=== PATIENT | female | born 1945 | race African-American/Black ===

== ENCOUNTER 2016-11-13 13:22 | Outpatient (CLI) | payer MEDICARE, MEDICAID ==
[2016-11-13 14:05] LABS: #Basophils 0.1 thou/uL (0.0-0.2); #Eosinphils 0.2 thou/uL (0.0-0.7); #Lymphocytes 2.5 thou/uL (1.20-3.40); #Monocytes 0.7 thou/uL (0.11-0.59); #Neutrophils 4.7 thou/uL (1.40-6.50); %Basophils 1.5 % (0.0-1.0); %Lymphocytes 30.2 % (21.0-51.0); %Monocytes 8.9 % (0.0-10.0); Hematocrit 38.9 % (36.0-47.0); Mean Platelet Volume 7.4 fL (7.4-10.4); Red Blood Cell (RBC) Count 4.15 mill/uL (4.20-5.40); White Blood Cell (WBC) Count 8.3 thou/uL (4.8-10.8)
[2016-11-13 14:17] LABS: ALT (SGPT) 33 U/L (0-55); AST (SGOT) 39 U/L (5-34); Alkaline Phosphatase 121 U/L (40-150); Anion Gap 17 mmol/L (10-20); BUN (Urea Nitrogen) 10 mg/dL (9.8-20.1); Bilirubin, Total 0.4 mg/dL (0.2-1.2); Calc. Creatinine Clearance 0 mL/min (70-130); Calcium 9.4 mg/dL (7.8-10.44); Carbon Dioxide 27 mmol/L (23-31); Chloride 101 mmol/L (98-107); Estimated GFR-MDRD 51; Globulin 3.8 g/dL (2.4-3.5); Protein, Total 7.9 g/dL (5.8-8.1)
[2016-11-13 14:27] LABS: Hemoglobin A1c 6.4 % (4.0-6.0)
== END 2016-11-13 13:23 | disposition home or self-care (01) ==
LOC: NAVSJIPCSP 13:22 → NAV LAB 13:23
PROVIDERS: ATTEND Internal Medicine
DX: I83.019 Varicose veins of right lower extremity with ulcer of unspecified site (principal)
CPT/HCPCS: 80053; 83036; 85025

== ENCOUNTER 2016-11-30 07:24 | Emergency (ER) | payer MEDICARE, MEDICAID ==
[2016-11-30] MEDS ORDERED: HYDROcodone/Acetaminophen 5/325 mg Tablet ONE (08:09)
--- NOTE | 2016-11-30 09:06 | RAD ---
TWO VIEWS LEFT HIP: INDICATION: Pain without injury. FINDINGS: There is moderate osteoarthritis of the left hip without fracture or dislocation. Vascular calcific ation is present. IMPRESSION: Osteoarthritis without acute fracture. POS: [facility]
== END 2016-11-30 09:18 | disposition home or self-care (01) ==
LOC: NAV ERS 07:24
DX: M16.12 Unilateral primary osteoarthritis, left hip (principal); I10 Essential (primary) hypertension; E11.9 Type 2 diabetes mellitus without complications; Z79.84 Long term (current) use of oral hypoglycemic drugs; Z79.899 Other long term (current) drug therapy

== ENCOUNTER 2017-04-19 09:49 | Outpatient (CLI) | payer MEDICARE, MEDICAID ==
[2017-04-19 11:28] LABS: Blood, Urine Negative (Negative); Clarity Slightly Cloudy (Clear); Glucose, Urine (Dipstick) Negative (Negative); Leukocyte Negative (Negative); Nitrite Negative (Negative); Protein, Urine (Dipstick) 100 mg/dL (Neg-Trace)
--- NOTE | 2017-04-19 11:34 | ULT ---
RIGHT LOWER EXTREMITY VENOUS DOPPLER ULTRASOUND: DATE: 04/19/17. COMPARISON: None. HISTORY: Right lower extremity swelling for 2 weeks. Right lower extremity edema. TECHNIQUE: Multiplanar, cohn scale, sonographic imaging of the venous structures of the right lower extremity w ere obtained with color flow and spectral analysis. FINDINGS: Right common femoral vein, greater saphenous vein, profunda femoral vein, femoral vein, popliteal ve in, and posterior tibial vein are patent. No evidence for a deep venous thrombosis of the right low er extremity seen. The deep venous structures of the right lower extremity demonstrate normal blood flow, augmentation, and compression. IMPRESSION: No sonographic evidence for deep venous thrombosis of the right lower extremity. POS: [facility]
[2017-04-19 11:44] LABS: ALT (SGPT) 44 U/L (8-55); AST (SGOT) 99 U/L (5-34); Alkaline Phosphatase 115 U/L (40-150); Anion Gap 18 mmol/L (10-20); BUN (Urea Nitrogen) 11 mg/dL (9.8-20.1); Calc. Creatinine Clearance 0 mL/min (70-130); Calcium 9.6 mg/dL (7.8-10.44); Carbon Dioxide 28 mmol/L (23-31); Chloride 100 mmol/L (98-107); Estimated GFR-MDRD 43; Globulin 4.1 g/dL (2.4-3.5); Glucose 134 mg/dL (83-110); Potassium 4.1 mmol/L (3.5-5.1); Protein, Total 8.1 g/dL (6.0-8.3); Sodium 142 mmol/L (136-145)
--- NOTE | 2017-04-19 11:45 | RAD ---
PA AND LATERAL VIEWS CHEST: HISTORY: Diabetes, leg pain. FINDINGS: The heart size is normal. The lungs are expanded without focal areas of consolidation, pneumothorax , or pleural effusions. There are degenerative changes in the spine. An old healed fracture of the left proximal humerus is seen. IMPRESSION: No acute process. POS: [facility]
[2017-04-19 11:50] LABS: Hemoglobin A1c 5.6 % (4.0-6.0)
[2017-04-19 11:54] LABS: Bilirubin Negative (Negative); Icto Negative (Negative)
[2017-04-19 12:04] LABS: Bacteria/HPF Rare-Few HPF (None Seen); RBC/HPF 0-3 HPF (0-3); Squamous Epithelial 0-3 HPF (0-3); WBC/HPF 0-3 HPF (0-3); Yeast-All Forms 1+ HPF (None Seen)
[2017-04-19 12:36] LABS: #Basophils 0.2 thou/uL (0.0-0.2); #Eosinphils 0.2 thou/uL (0.0-0.7); #Lymphocytes 2.4 thou/uL (1.20-3.40); #Monocytes 0.6 thou/uL (0.11-0.59); #Neutrophils 6.4 thou/uL (1.40-6.50); %Basophils 1.8 % (0.0-1.0); %Eosinophils 2.2 % (0.0-10.0); %Lymphocytes 24.7 % (21.0-51.0); %Monocytes 6.2 % (0.0-10.0); %Neutrophils 65.2 % (42.0-75.0); Hemoglobin 12.8 g/dL (12.0-16.0); Mean Corpuscular Hemoglobin 30.1 pg (27.0-31.0); Mean Corpuscular Volume 91.2 fl (81.0-99.0); Mean Platelet Volume 7.9 fL (7.4-10.4); Platelet Count 276 thou/uL (130-400); RBC Distribution Width 14.1 % (11.5-14.5); Red Blood Cell (RBC) Count 4.25 mill/uL (4.20-5.40); White Blood Cell (WBC) Count 9.8 thou/uL (4.8-10.8)
[2017-04-19 17:38] LABS: Creatinine, Urine Greater than 430.00 mg/dL (47-110)
== END 2017-04-19 09:50 | disposition home or self-care (01) ==
LOC: NAV LAB 09:49
PROVIDERS: ATTEND Internal Medicine
DX: E11.9 Type 2 diabetes mellitus without complications (principal); M79.89 Other specified soft tissue disorders
CPT/HCPCS: 36415; 71020; 80053; 81003; 81015; 82043; 83036; 84443; 85025

== ENCOUNTER 2017-09-11 14:22 | Outpatient (CLI) | payer MEDICARE, MEDICAID ==
--- NOTE | 2017-09-11 16:48 | RAD ---
TWO VIEW CHEST: Date: 09-11-17 Comparison: 04-19-17 History: Weight loss. FINDINGS: There is no lobar consolidation, effusion, or pneumothorax. Cardiac silhouette is normal in size. IMPRESSION: No focal consolidation. POS: [facility]
--- NOTE | 2017-09-11 17:58 | CT ---
CT ABDOMEN AND PELVIS NONCONTRAST: History: Weight loss. Loss of appetite. Comparison: 10-01-14 FINDINGS: IV was unable to be achieved for contrast administration. The lung bases are clear. Each renal collec ting system and ureter and the urinary bladder are decompressed, without stone evidence. There are prominent degenerative changes of the lumbar spine. No evidence of bowel obstruction. Diver ticula arise from the colon with adjacent inflammation. There is calcification in the arterial struct ures. Stomach is decompressed. IMPRESSION: 1. No evidence of bowel obstruction or other acute abnormalities. IV contrast was not given due to in ability to gain venous access. 2. Atherosclerosis. 3. Diverticulosis. No evidence of diverticulitis. POS: [facility]
== END 2017-09-11 14:23 | disposition home or self-care (01) ==
LOC: NAV CT 14:22
PROVIDERS: ATTEND Internal Medicine
DX: R63.4 Abnormal weight loss (principal); I70.90 Unspecified atherosclerosis; K57.90 Diverticulosis of intestine, part unspecified, without perforation or abscess without bleeding
CPT/HCPCS: 71046; 74177

== ENCOUNTER 2019-06-01 11:17 | Outpatient (CLI) | payer MEDICARE, MEDICAID ==
--- NOTE | 2019-06-01 13:59 | CT ---
CT ABDOMEN AND PELVIS WITHOUT IV CONTRAST: Date: 06/01/19 INDICATION: 74-year-old female with weight loss. COMPARISON: Prior exam dated 09/11/17. FINDINGS: ABDOMEN: Lung bases are clear. There is mild fatty infiltration of the liver. There is layered small stones or gallbladder sludge within the gallbladder. The unopacified pancreas, adrenal glands, spleen, and kidneys are unremarkable appearing. There are mild vascular calcifications involving the abdominopelvic vasculature. No enlarged lymph nodes or free fluid is evident. There is a normal appendix in the right lower quadrant. There is scattered diverticula involving the colon without evidence of active diverticulitis. The reproductive structures are not visualized and presumed to be surgically absent. The bladder is decompressed. Rectum and perirectal soft tissues are unremarkable appearing. There is Grade I anterolisthesis of L4 on L5 that is stable to a MRI examination dated 07/02/02. There is moderate multilevel spondylosis of the lumbar spine. There is diffuse osteopenia. No suspici ous osteolytic or osteoblastic lesions identified. Small hemangioma seen within the right aspect of L 4. IMPRESSION: 1. No CT explanation for the patient's weight loss. 2. Gallbladder sludge versus cholelithiasis. 3. Mild fatty liver. 4. Colonic diverticulosis. POS: [facility]
== END 2019-06-01 11:18 | disposition home or self-care (01) ==
LOC: NAV CT 11:17
PROVIDERS: ATTEND Internal Medicine
DX: R63.0 Anorexia (principal); K76.0 Fatty (change of) liver, not elsewhere classified; K57.30 Diverticulosis of large intestine without perforation or abscess without bleeding
CPT/HCPCS: 74176

== ENCOUNTER 2019-06-16 14:53 | Inpatient (IN) | payer MEDICARE, MEDICAID ==
[2019-06-16] MEDS ORDERED: Ondansetron ODT 4 MG TAB PO PRN (20:01)
[2019-06-16] MEDS ORDERED: HumaLOG 300 UNITS/3 ML VIAL SC PRN (20:05)
[2019-06-16] MEDS ORDERED: Dextrose 5% in Water 1,000 ML IV PRN (20:05)
[2019-06-16] MEDS ORDERED: Dextrose 50% Abboject 50 ML SYRINGE SLOW IVP PRN (20:05)
[2019-06-16] MEDS: Sodium Chloride 0.9% 1,000 ML IV SCH (20:29)
[2019-06-16 20:55] LABS: #Basophils 0.1 thou/uL (0.0-0.2); #Eosinphils 0.2 thou/uL (0.0-0.7); #Lymphocytes 1.9 thou/uL (1.20-3.40); #Monocytes 0.8 thou/uL (0.11-0.59); #Neutrophils 3.3 thou/uL (1.40-6.50); %Basophils 1.6 % (0.0-1.0); %Eosinophils 3.3 % (0.0-10.0); %Lymphocytes 29.7 % (21.0-51.0); %Monocytes 12.9 % (0.0-10.0); Mean Corpuscular HGB CONC 34.2 g/dL (32.0-36.0); Mean Corpuscular Hemoglobin 30.2 pg (27.0-31.0); Mean Corpuscular Volume 88.4 fL (78.0-98.0); Mean Platelet Volume 8.4 fL (7.4-10.4); Platelet Count 162 thou/uL (130-400); RBC Distribution Width 12.1 % (11.5-14.5); Red Blood Cell (RBC) Count 2.66 mill/uL (4.20-5.40); White Blood Cell (WBC) Count 6.3 thou/uL (4.8-10.8)
[2019-06-16 20:56] LABS: ALT (SGPT) 27 U/L (8-55); AST (SGOT) 51 U/L (5-34); Albumin 2.9 g/dL (3.4-4.8); Alkaline Phosphatase 73 U/L (40-110); Anion Gap 13 mmol/L (10-20); BUN (Urea Nitrogen) 29 mg/dL (9.8-20.1); Bilirubin, Total 0.6 mg/dL (0.2-1.2); Calc. Creatinine Clearance 29 mL/min (70-130); Calcium 8.5 mg/dL (7.8-10.44); Carbon Dioxide 25 mmol/L (23-31); Chloride 95 mmol/L (98-107); Estimated GFR-MDRD 26; Globulin 3.1 g/dL (2.4-3.5); Glucose 93 mg/dL (83-110); Potassium 4.3 mmol/L (3.5-5.1); Sodium 129 mmol/L (136-145)
[2019-06-16 21:03] LABS: %Neutrophils 52.4 % (42.0-75.0)
[2019-06-17 04:08] LABS: Bilirubin Negative (Negative); Blood, Urine Trace (Negative); Clarity Clear (Clear); Glucose, Urine (Dipstick) Negative (Negative); Leukocyte Negative (Negative); Nitrite Negative (Negative); Protein, Urine (Dipstick) Negative (Neg-Trace); Urobilinogen 0.2 mg/dL (Less than 2)
[2019-06-17 04:12] LABS: Bacteria/HPF None Seen HPF (None Seen); RBC/HPF 0-3 HPF (0-3); WBC/HPF None Seen HPF (0-3)
[2019-06-17] MEDS: Sodium Chloride 0.9% 1,000 ML IV SCH ×2 (04:20→13:13)
[2019-06-17 06:18] LABS: Anion Gap 14 mmol/L (10-20); BUN (Urea Nitrogen) 24 mg/dL (9.8-20.1); Calc. Creatinine Clearance 39 mL/min (70-130); Calcium 8.5 mg/dL (7.8-10.44); Carbon Dioxide 25 mmol/L (23-31); Chloride 101 mmol/L (98-107); Estimated GFR-MDRD 35; Glucose 81 mg/dL (83-110); Potassium 4.4 mmol/L (3.5-5.1); Sodium 136 mmol/L (136-145)
[2019-06-17] MEDS: Allopurinol 100 MG TAB PO SCH (09:25)
[2019-06-17] MEDS: Lisinopril 20 MG TAB PO SCH (09:29)
[2019-06-17] MEDS: Amlodipine 5 MG TAB PO SCH (09:29)
[2019-06-18] MEDS: Sodium Chloride 0.9% 1,000 ML IV SCH ×4 (00:52→16:33)
[2019-06-18 06:31] LABS: Anion Gap 15 mmol/L (10-20); BUN (Urea Nitrogen) 11 mg/dL (9.8-20.1); Calc. Creatinine Clearance 65 mL/min (70-130); Calcium 8.7 mg/dL (7.8-10.44); Carbon Dioxide 23 mmol/L (23-31); Chloride 107 mmol/L (98-107); Estimated GFR-MDRD 65; Glucose 79 mg/dL (83-110); Potassium 4.3 mmol/L (3.5-5.1); Sodium 141 mmol/L (136-145)
[2019-06-18] MEDS: Allopurinol 100 MG TAB PO SCH (08:51)
[2019-06-18] MEDS: Amlodipine 5 MG TAB PO SCH (08:51)
[2019-06-18] MEDS: Lisinopril 20 MG TAB PO SCH (09:18)
[2019-06-18] MEDS ORDERED: GoLYTELY 4,000 ml Bottle PO SCH (16:00)
[2019-06-19 07:03] VITALS: BMI 30.9
[2019-06-19] MEDS: Sodium Chloride 0.9% 1,000 ML IV SCH (07:03)
[2019-06-19] MEDS: Amlodipine 5 MG TAB PO SCH (07:15)
[2019-06-19 07:59] VITALS: TEMP 97.8
[2019-06-19] MEDS: Allopurinol 100 MG TAB PO SCH (10:55)
[2019-06-19] MEDS: Lisinopril 20 MG TAB PO SCH (10:55)
[2019-06-19 16:12] VITALS: BP 159/83
--- NOTE | 2019-06-23 06:09 | PRG ---
DATE OF SERVICE: 06/17/2019 SUBJECTIVE: The patient still feels very weak, but is feeling better after IV fluids. Denying any shortness of breath, nausea, or vomiting, but is still having very poor appetite, not eating well, poor oral intake. OBJECTIVE: VITAL SIGNS: Temperature is 98.3 pulse 101, respirations 18, O2 sats 97% on room air, blood pressure is 88/50. LUNGS: Clear. CARDIAC: Shows regular rhythm. ABDOMEN: Soft and nontender. LABORATORY DATA: Initial hemoglobin was 8.0, hematocrit 23, and white count 6,300. ASSESSMENT: A 74-year-old black female with a history of anorexia, weight loss, severe weakness, admitted to the hospital for IV fluids, for evaluation of above symptoms. She has had nondiagnostic CT scan, but has not had colonoscopy in such a weakened state, that she is unable to do her prep at home and therefore admitted to the hospital for IV fluids and is improving on this and we will start prep tomorrow. Job ID: [id number]
--- NOTE | 2019-06-23 06:13 | DIS ---
DATE OF ADMISSION: 06/16/2019 DATE OF DISCHARGE: 06/19/2019 FINAL DIAGNOSES: 1. Large gastric ulcer, biopsies pending. Few benign-appearing colon polyps and diverticular disease. 2. Type 2 diabetes. 3. Anorexia and weight loss. 4. Hypertension. 5. Lumbar spinal stenosis. HOSPITAL COURSE: The patient is a 74-year-old black female with history of hypertension, diabetes, presented to the office with a 20-pound weight loss over the last several weeks associated with poor oral intake, anorexia, and difficulty swallowing. She has had a CT scan, which showed gallbladder sludge, mild fatty liver, colonic diverticular disease, but has never had colonoscopy or EGD. She therefore was admitted to the hospital because she was severely weakened to the point she could not maintain her prep, started on IV fluids, appeared to improve with that and then was started on the colonoscopy prep and tolerated fairly well. Did have an EGD, which showed a large gastric ulcer. Biopsies are pending. She was started on omeprazole 20 mg twice daily. Her colonoscopy only showed diverticular disease. She did feel better after the IV fluids and stated that she wished to be discharged home to attempt to eat better at home, on these medications. She will therefore be discharged home to follow up with myself in 1 to 2 weeks. Pending results of gastric ulcer biopsy. Job ID: [id number]
--- NOTE | 2019-06-23 06:23 | PRG ---
DATE OF SERVICE: 06/18/2019 SUBJECTIVE: The patient feels somewhat better, is tolerating the prep with no vomiting, but with some nausea and no abdominal pain. She is not as weak as she was and the IV fluids appeared to be improving her status. OBJECTIVE: Temperature is 97, pulse 89, respirations 18, O2 sats 98% on room air, and blood pressure 128/69. Accu-Cheks have been stable. Prep is ongoing with EGD and colonoscopy tomorrow by Dr. Patel. ASSESSMENT: 1. Resolving dehydration and weakness with IV fluids. 2. Persistent anorexia, poor oral intake, and weight loss of unknown etiology. PLAN: Colonoscopy and EGD tomorrow. Job ID: [id number]
--- NOTE | 2019-06-24 05:56 | PQF ---
SAP Chain Offbearer Crystal Reports Winform ViewerBROADEN PEDRO LUIS De La Cruz CHAY POWERS MD [id number] CLINICAL DOCUMENTATION CLARIFICATION FORM: POST DISCHARGE Addendum to original discharge summary date: ____ Late entry note date: __ DATE: 06/16/19 ATTN: CHAY POWERS MD Please exercise your independent, professional judgment in responding to the clarification form. Clinical indicators are provided on the bottom of this form for your review Please check appropriate box(s): ETIOLOGY OF WEAKNESS [ x ] Weakness due to Large gastric ulcer [ ] Weakness due to colon polyp [ ] Weakness due to diverticular disease [ ] Other diagnosis [ ] Unable to determine In addition, please specify: Present on Admission (POA): [x ] Yes [ ] No [ ] Unable to determine For continuity of documentation, please document condition throughout progress notes and discharge summary. Thank You. CLINICAL INDICATORS - SIGNS / SYMPTOMS / LABS Admitted hospital because of he was severely weakned - Documentd in DS on 06/19 by CHAY POWERS MD Large gastric ulcer - Documentd in DS on 06/19 by CHAY POWERS MD Few benign appearing colon polyps and divertivular disease - Documentd in DS on 06/19 by CHAY POWERS MD She had CT scan which showed gallbladder sludge mild fatty liver, colonic diverticular disease - Documentd in DS on 06/19 by CHAY POWERS MD EGD shows large gastric ulcer - Documentd in DS on 06/19 by CHAY POWERS MD colonoscopy shows diverticular disease - Documentd in DS on 06/19 by CHAY POWERS MD Resolving dehydraqtion and weaknewss with IV fluids - Documented in PNs on by CHAY POWERS MD RISK FACTORS HTN DM TREATMENTS: Started IV fluids appeared to improved - Documentd in DS on 06/19 by CHAY POWERS MD EGD biopsy colonoscopy SAP Chain Offbearer Crystal Reports Winform Viewer (This form is maintained as a part of the permanent medical record) 2014 [employer]. All Rights Reserved Phuc [email or web address] [not provided] MTDD
--- NOTE | 2019-06-24 22:37 | PQF ---
SAP Brooch And Bracelet Maker Crystal Reports Winform ViewerBROADEN PEDRO LUIS De La Cruz CHAY POWERS MD [id number] CLINICAL DOCUMENTATION CLARIFICATION FORM: POST DISCHARGE Addendum to original discharge summary date: ____ Late entry note date: __ Date: 06/25/2019 ATTN: CHAY POWERS MD Please exercise your independent, professional judgment in responding to the clarification form. Clinical indicators are provided on the bottom of this form for your review Please check appropriate box(s): [ x ] Protein Calorie Malnutrition: [ ] Mild [ ] Moderate [ ] Severe [ ] Other Malnutrition (please specify) __ [ ] Underweight without malnutrition [ ] Cachexia [ ] Other diagnosis [ ] Unable to determine In addition, please specify: Present on Admission (POA): [ x ] Yes [ ] No [ ] Unable to determine CLINICAL INDICATORS - SIGNS / SYMPTOMS / LABS Anorexia - Documented in DS on 06/19 by CHAY POWERS MD BMI of _30.9_ Weight loss - Documented in DS on 06/19 by CHAY POWERS MD Large gastric ulcer - Documented in DS on 06/19 by CHAY POWERS MD Present to the office with a 20 pounds weight loss over the last several weeks associated poor oral intake and difficulty to swallowing - Documented in DS on 06/19 by CHAY POWERS MD HGB 8.0 on 06/16 - Documented in Laboratory results Albumin level 2.9 on 06/16 - Documented in Laboratory results Feeling better after IV fluids - Documented in PNs on 06/23 by CHAY POWERS MD RISK FACTORS Diverticulosis - Documented in DS on 06/19 by CHAY POWERS MD Benign appearing colon - Documented in DS on 06/19 by CHAY POWERS MD TREATMENT: started on IV fluids Eat better at home Moderate Malnutrition (in acute illness) Energy Intake: <75% of estimated energy requirement for > 7 days SAP Brooch And Bracelet Maker Crystal Reports Winform ViewerWeight Loss: 1-2%/1 week; 5%/ 1 month; 7.5%/3 months Other: mild body fat loss; mild muscle mass loss; mild fluid accumulation; Severe Malnutrition (in acute illness) Energy Intake: < 50% of estimated energy requirement for > 5 days Weight Loss: >1-2%/1 week; >5%/1 month; >7.5%/3 months Other: moderate body fat loss; moderate muscle mass loss; moderate- severe fluid accumulation; measurably reduced technology trainer strength Moderate Malnutrition (in chronic illness) Energy Intake: <75% of estimated energy requirement for >1 month Weight Loss: 5%/1 month; 7.5%/3 months; 10%/6 months; 20%/1 year Other: mild body fat loss; mild muscle mass loss; mild fluid accumulation Severe Malnutrition (in chronic illness) Energy Intake: <75% of estimated energy requirement for >1 month Weight Loss: >5%/1 month; >7.5%/3 months; >10%/6 months; >20%/1 year Other: severe body fat loss; severe muscle mass loss; severe fluid accumulation ; measurably reduced technology trainer strength (This form is maintained as a part of the permanent medical record) 2014 [employer] All Rights Reserved Phuc [email or web address] [not provided] REED
== END 2019-06-19 16:32 | disposition home or self-care (01) | DRG 384 ==
LOC: NAV ACUTE 14:53 → OBSVTOIN 14:53
PROVIDERS: ADMIT Internal Medicine; ATTEND Internal Medicine
DX: K25.9 Gastric ulcer, unspecified as acute or chronic, without hemorrhage or perforation (principal); E46 Unspecified protein-calorie malnutrition; R53.1 Weakness; R63.4 Abnormal weight loss; E86.0 Dehydration; Z68.30 Body mass index [BMI] 30.0-30.9, adult; M19.91 Primary osteoarthritis, unspecified site; Z96.652 Presence of left artificial knee joint; I12.9 Hypertensive chronic kidney disease with stage 1 through stage 4 chronic kidney disease, or unspecified chronic kidney disease; N18.2 Chronic kidney disease, stage 2 (mild); K21.9 Gastro-esophageal reflux disease without esophagitis; E11.22 Type 2 diabetes mellitus with diabetic chronic kidney disease; M10.9 Gout, unspecified; R01.1 Cardiac murmur, unspecified; R63.0 Anorexia; M48.061 Spinal stenosis, lumbar region without neurogenic claudication; K57.90 Diverticulosis of intestine, part unspecified, without perforation or abscess without bleeding; K63.5 Polyp of colon; K82.8 Other specified diseases of gallbladder
CPT/HCPCS: 36416; 80048; 80053; 81001; 85025; 36415-59; J7050

== ENCOUNTER 2019-11-08 12:21 | Emergency (ER) | payer MEDICARE, OTHER ==
[2019-11-08 13:35] LABS: ALT (SGPT) 34 U/L (8-55); AST (SGOT) 55 U/L (5-34); Albumin 2.5 g/dL (3.4-4.8); Alkaline Phosphatase 118 U/L (40-110); Anion Gap 16 mmol/L (10-20); BUN (Urea Nitrogen) 14 mg/dL (9.8-20.1); Bilirubin, Total 0.5 mg/dL (0.2-1.2); CK (CPK) 51 U/L (29-168); Calc. Creatinine Clearance 0 mL/min (70-130); Calcium 7.7 mg/dL (7.8-10.44); Carbon Dioxide 27 mmol/L (23-31); Chloride 101 mmol/L (98-107); Estimated GFR-MDRD 44; Globulin 3.3 g/dL (2.4-3.5); Glucose 126 mg/dL (83-110); Protein, Total 5.8 g/dL (6.0-8.3); Sodium 140 mmol/L (136-145)
[2019-11-08 13:45] LABS: Hemoglobin 8.3 g/dL (12.0-16.0); Mean Corpuscular HGB CONC 35.2 g/dL (32.0-36.0); Mean Corpuscular Volume 88.1 fL (78.0-98.0); Mean Platelet Volume 9.3 fL (7.4-10.4); Platelet Count 185 thou/uL (130-400); RBC Distribution Width 11.6 % (11.5-14.5); Red Blood Cell (RBC) Count 2.66 mill/uL (4.20-5.40); White Blood Cell (WBC) Count 8.9 thou/uL (4.8-10.8)
[2019-11-08 13:56] LABS: CKMB 1.3 ng/mL (0-6.6)
[2019-11-08 14:01] LABS: Eosinophils 1 % (0-10); Hypochromia SLIGHT = 6-15 cells (100X) (0-5/hpf); Lymphocytes 25 % (21-51); MDiff Complete? YES; Monocytes 4 % (0-10); Neutrophil 70 % (42-75); Target Cells SLIGHT = 2-5 cells (100X) (0-1/hpf)
[2019-11-08] MEDS ORDERED: Sodium Chloride 0.9% 250 ML 250 ML ONE ×2 (14:03→14:37)
[2019-11-08] MEDS ORDERED: Piperacillin/Tazobactam 3.375 GM VIAL ONE (14:35)
[2019-11-08] MEDS ORDERED: Sodium Chloride 0.9% 100 ML ONE (14:35)
[2019-11-08 15:44] LABS: Bilirubin Negative (Negative); Blood, Urine Trace (Negative); Clarity Clear (Clear); Glucose, Urine (Dipstick) Negative (Negative); Leukocyte Moderate (Negative); Nitrite Positive (Negative); Protein, Urine (Dipstick) Negative (Neg-Trace)
[2019-11-08 15:45] LABS: Bacteria/HPF 1+ HPF (None Seen); RBC/HPF 0-3 HPF (0-3); Squamous Epithelial 0-3 HPF (0-3)
== END 2019-11-08 15:20 | disposition short-term general hospital (02) ==
LOC: NAV ERS 12:21
DX: A41.9 Sepsis, unspecified organism (principal); R60.1 Generalized edema; I10 Essential (primary) hypertension; E11.9 Type 2 diabetes mellitus without complications; Z79.899 Other long term (current) drug therapy
CPT/HCPCS: 36415; 80053; 81003; 81015; 82550; 82553; 83605; 83880; 84484; 85025; 85379; 87040; 93005; 96365; 96375; J2543; J3370; J3490; J7050

== ENCOUNTER 2020-01-28 11:24 | Emergency (ER) | payer MEDICARE, MEDICAID, OTHER ==
[2020-01-28 12:16] LABS: #Basophils 0.1 thou/uL (0.0-0.2); #Eosinphils 0.1 thou/uL (0.0-0.7); #Lymphocytes 2.4 thou/uL (1.20-3.40); #Monocytes 0.6 thou/uL (0.11-0.59); #Neutrophils 5.1 thou/uL (1.40-6.50); %Basophils 0.9 % (0.0-1.0); %Lymphocytes 29.7 % (21.0-51.0); %Monocytes 6.8 % (0.0-10.0); %Neutrophils 61.6 % (42.0-75.0); Hemoglobin 7.2 g/dL (12.0-16.0); Mean Corpuscular Hemoglobin 30.1 pg (27.0-31.0); Mean Corpuscular Volume 91.4 fL (78.0-98.0); Mean Platelet Volume 10.5 fL (7.4-10.4); Platelet Count 123 thou/uL (130-400); RBC Distribution Width 12.8 % (11.5-14.5); Red Blood Cell (RBC) Count 2.39 mill/uL (4.20-5.40); White Blood Cell (WBC) Count 8.2 thou/uL (4.8-10.8)
[2020-01-28 12:30] LABS: ALT (SGPT) 23 U/L (8-55); AST (SGOT) 42 U/L (5-34); Albumin 2.3 g/dL (3.4-4.8); Alkaline Phosphatase 66 U/L (40-110); Anion Gap 17 mmol/L (10-20); BUN (Urea Nitrogen) 33 mg/dL (9.8-20.1); Bilirubin, Total 0.4 mg/dL (0.2-1.2); Calc. Creatinine Clearance 0 mL/min (70-130); Carbon Dioxide 17 mmol/L (23-31); Chloride 113 mmol/L (98-107); Estimated GFR-MDRD 18; Globulin 3.1 g/dL (2.4-3.5); Glucose 91 mg/dL (83-110); Lipase 15 U/L (8-78); Potassium 3.3 mmol/L (3.5-5.1); Protein, Total 5.4 g/dL (6.0-8.3); Sodium 144 mmol/L (136-145)
[2020-01-28 12:31] LABS: Bilirubin Negative (Negative); Blood, Urine Trace (Negative); Clarity Cloudy (Clear); Glucose, Urine (Dipstick) Negative (Negative); Leukocyte Large (Negative); Nitrite Negative (Negative); Protein, Urine (Dipstick) 30 mg/dL (Neg-Trace); Urobilinogen 0.2 mg/dL (Less than 2)
[2020-01-28 12:42] LABS: Bacteria/HPF 3+ HPF (None Seen); RBC/HPF 0-3 HPF (0-3); Squamous Epithelial None Seen HPF (0-3)
[2020-01-28] MEDS ORDERED: Sodium Chloride 0.9% 100 ML ONE (13:02)
[2020-01-28] MEDS ORDERED: Sodium Chloride 0.9% 1,000 ML ONE (13:02)
[2020-01-28] MEDS ORDERED: Cefepime 2 GM VIAL ONE (13:02)
--- NOTE | 2020-01-28 13:17 | RAD ---
Exam: Chest one view HISTORY:Syncope. Comparison: 09/30/2014 FINDINGS: Cardiac silhouette: Normal Aorta: Atherosclerosis Pulmonary vessels: Normal Costophrenic angles: Clear LUNGS: No masses or consolidation. Pneumothorax: None Osseous abnormalities: Remote left humerus fracture. IMPRESSION: No acute cardiopulmonary process. Atherosclerosis.
[2020-01-28] MEDS ORDERED: Ondansetron PF 4 MG/2 ML Vial ONE (13:45)
[2020-01-28] MEDS ORDERED: Sodium Chloride 0.9% 500 ML ONE (13:45)
--- NOTE | 2020-01-28 15:20 | CT ---
CT BRAIN WITHOUT CONTRAST: 01/28/20 HISTORY: Syncope. COMPARISON: 09/30/14. FINDINGS: No evidence of acute infarct, hemorrhage, midline shift or abnormal extra-axial fluid collections are seen. The ventricular size is stable and the basilar cisterns patent. The bony calvarium is intact. The visualized paranasal sinuses and mastoid air cells are well aerated . IMPRESSION: No acute evidence of acute intracranial process. POS: [facility]
[2020-01-28 16:23] LABS: CKMB 0.9 ng/mL (0-6.6); Troponin I 0.046 ng/mL (< 0.028)
== END 2020-01-28 13:57 | disposition short-term general hospital (02) ==
LOC: NAV ERS 11:24
DX: A41.9 Sepsis, unspecified organism (principal); N39.0 Urinary tract infection, site not specified; N17.9 Acute kidney failure, unspecified; D64.9 Anemia, unspecified; E11.9 Type 2 diabetes mellitus without complications; I10 Essential (primary) hypertension; E86.0 Dehydration; R79.1 Abnormal coagulation profile; R79.0 Abnormal level of blood mineral; M25.431 Effusion, right wrist; S42.302D Unspecified fracture of shaft of humerus, left arm, subsequent encounter for fracture with routine healing; Z79.899 Other long term (current) drug therapy; X58.XXXD Exposure to other specified factors, subsequent encounter
CPT/HCPCS: 51701; 70450; 71045; 80053; 81003; 81015; 82553; 83605; 83690; 85025; 85379; 87040; 87077; 87086; 87186; 93005; 94760; 96365; 96375; A4353; J0692; J2405; J3490; J7030; J7050

== ENCOUNTER 2020-04-09 16:36 | Emergency (ER) | payer MEDICARE, MEDICAID ==
[2020-04-09 17:54] LABS: ALT (SGPT) 15 U/L (8-55); AST (SGOT) 27 U/L (5-34); Albumin 2.6 g/dL (3.4-4.8); Alkaline Phosphatase 67 U/L (40-110); Anion Gap 24 mmol/L (10-20); BUN (Urea Nitrogen) 37 mg/dL (9.8-20.1); Bilirubin, Total 0.3 mg/dL (0.2-1.2); Calc. Creatinine Clearance 0 mL/min (70-130); Calcium 7.8 mg/dL (7.8-10.44); Carbon Dioxide 10 mmol/L (23-31); Chloride 114 mmol/L (98-107); Estimated GFR-MDRD 12; Globulin 3.4 g/dL (2.4-3.5); Glucose 73 mg/dL (83-110); Hemoglobin 7.8 g/dL (12.0-16.0); Mean Corpuscular HGB CONC 31.5 g/dL (32.0-36.0); Mean Corpuscular Hemoglobin 29.8 pg (27.0-31.0); Mean Corpuscular Volume 94.8 fL (78.0-98.0); Mean Platelet Volume 8.5 fL (7.4-10.4); Platelet Count 184 thou/uL (130-400); RBC Distribution Width 14.2 % (11.5-14.5); Red Blood Cell (RBC) Count 2.61 mill/uL (4.20-5.40); Sodium 145 mmol/L (136-145); White Blood Cell (WBC) Count 9.9 thou/uL (4.8-10.8)
[2020-04-09 17:55] LABS: #Basophils 0.1 thou/uL (0.0-0.2); #Eosinphils 0.2 thou/uL (0.0-0.7); #Lymphocytes 2.8 thou/uL (1.20-3.40); #Monocytes 0.5 thou/uL (0.11-0.59); #Neutrophils 6.2 thou/uL (1.40-6.50); %Basophils 1.5 % (0.0-1.0); %Eosinophils 2.3 % (0.0-10.0); %Lymphocytes 28.6 % (21.0-51.0); %Monocytes 5.1 % (0.0-10.0); %Neutrophils 62.6 % (42.0-75.0)
[2020-04-09 18:30] LABS: Hypochromia SLIGHT = 6-15 cells (100X) (0-5/hpf); MDiff Complete? YES; Platelet Morphology Comment Appears Adequate
[2020-04-09] MEDS ORDERED: Sodium Chloride 0.9% 2,000 ML ONE (18:54)
--- NOTE | 2020-04-09 18:56 | RAD ---
EXAM: CHEST ONE VIEW HISTORY: Confusion. COMPARISON: 01/28/2020 FINDINGS: The patient is rotated to the left which accentuates the cardiac silhouette and mediastinal structure s. The lungs are clear. Given differences in patient position, there has been no interval change from prior study. IMPRESSION: No acute cardiopulmonary process.
[2020-04-09 19:24] LABS: CKMB 1.8 ng/mL (0-6.6)
[2020-04-09 19:29] LABS: Base Excess-Venous -13.2 mmol/L (-2.0 to 3.0); Bicarbonate (HCO3v) 12.3 mmol/L (22.0-28.0); CO2 Tension (PvCO2) 26.7 mmHg (40.0-50.0); Calcium, Ionized 1.15 mmol/L (See Comments:); Chloride 119 mmol/L (98-107); Hemoglobin - Calc 8.8 g/dL (12.0-16.0); Potassium 2.9 mmol/L (3.5-5.1); Sodium 147 mmol/L (138-145); T. Carbon Dioxide 13.1 mmol/L (22.0-28.0); vO2 Saturation-calc 61.3 % (60.0-85.0)
[2020-04-09 20:58] LABS: Bilirubin Negative (Negative); Blood, Urine Moderate (Negative); Clarity Cloudy (Clear); Glucose, Urine (Dipstick) Negative (Negative); Ketone, Urine Negative (Negative); Leukocyte Large (Negative); Nitrite Negative (Negative); Protein, Urine (Dipstick) Negative (Neg-Trace); Urobilinogen 0.2 mg/dL (Less than 2); pH, Urine 5.5 (5.0-9.0)
[2020-04-09 20:59] LABS: Bacteria/HPF 3+ HPF (None Seen); RBC/HPF 0-3 HPF (0-3); WBC/HPF Greater Than 50 HPF (0-3)
== END 2020-04-09 20:44 | disposition short-term general hospital (02) ==
LOC: NAV ERS 16:36
DX: E86.9 Volume depletion, unspecified (principal); E87.6 Hypokalemia; D64.9 Anemia, unspecified; N28.9 Disorder of kidney and ureter, unspecified; R79.89 Other specified abnormal findings of blood chemistry; I10 Essential (primary) hypertension; E11.9 Type 2 diabetes mellitus without complications; Z79.82 Long term (current) use of aspirin; Z79.84 Long term (current) use of oral hypoglycemic drugs; Z79.899 Other long term (current) drug therapy
CPT/HCPCS: 71045; 80053; 81003; 81015; 82330; 82553; 82803; 83605; 84443; 84484; 85025; 87040; 87077; 87086; 87149; 87186; 93005; 94760; 96360; 96361; J7050

== ENCOUNTER 2020-06-03 12:42 | Emergency (ER) | payer MEDICARE, MEDICAID ==
--- NOTE | 2020-06-03 13:32 | RAD ---
PORTABLE CHEST: Date: 06/03/2020 HISTORY: Epigastric pain. FINDINGS: Heart size is within normal limits. There are atherosclerotic changes of the aorta. The lungs are esperanza ar of any infiltrates. No bony findings. IMPRESSION: No active intrathoracic disease. POS: [facility]
[2020-06-03 14:13] LABS: #Basophils 0.1 thou/uL (0.0-0.2); #Eosinphils 0.1 thou/uL (0.0-0.7); #Lymphocytes 1.8 thou/uL (1.20-3.40); #Monocytes 0.5 thou/uL (0.11-0.59); #Neutrophils 10.8 thou/uL (1.40-6.50); %Basophils 0.4 % (0.0-1.0); %Eosinophils 0.6 % (0.0-10.0); %Lymphocytes 13.5 % (21.0-51.0); %Monocytes 3.8 % (0.0-10.0); %Neutrophils 81.7 % (42.0-75.0); Hemoglobin 7.9 g/dL (12.0-16.0); Mean Corpuscular HGB CONC 31.7 g/dL (32.0-36.0); Mean Corpuscular Hemoglobin 28.9 pg (27.0-31.0); Mean Corpuscular Volume 91.2 fL (78.0-98.0); Mean Platelet Volume 7.6 fL (7.4-10.4); Platelet Count 340 thou/uL (130-400); RBC Distribution Width 14.4 % (11.5-14.5); Red Blood Cell (RBC) Count 2.75 mill/uL (4.20-5.40); White Blood Cell (WBC) Count 13.2 thou/uL (4.8-10.8)
[2020-06-03 14:26] LABS: ALT (SGPT) 9 U/L (8-55); AST (SGOT) 22 U/L (5-34); Albumin 2.8 g/dL (3.4-4.8); Alkaline Phosphatase 78 U/L (40-110); Anion Gap 22 mmol/L (10-20); BUN (Urea Nitrogen) 15 mg/dL (9.8-20.1); Bilirubin, Total 0.3 mg/dL (0.2-1.2); Calc. Creatinine Clearance 0 mL/min (70-130); Calcium 8.5 mg/dL (7.8-10.44); Carbon Dioxide 19 mmol/L (23-31); Chloride 105 mmol/L (98-107); Estimated GFR-MDRD 50; Globulin 3.3 g/dL (2.4-3.5); Glucose 125 mg/dL (83-110); Potassium 4.5 mmol/L (3.5-5.1); Protein, Total 6.1 g/dL (6.0-8.3); Sodium 141 mmol/L (136-145)
[2020-06-03 14:29] LABS: Bilirubin Moderate (Negative); Blood, Urine Trace (Negative); Clarity Clear (Clear); Glucose, Urine (Dipstick) Negative (Negative); Ketone, Urine 15 mg/dL (Negative); Leukocyte Small (Negative); Nitrite Negative (Negative); Protein, Urine (Dipstick) 30 mg/dL (Neg-Trace); Urobilinogen 0.2 mg/dL (Less than 2)
[2020-06-03 14:41] LABS: RBC/HPF 0-3 HPF (0-3)
[2020-06-03 14:42] LABS: Bacteria/HPF Rare-Few HPF (None Seen)
--- NOTE | 2020-06-03 15:01 | CT ---
EXAM: CT brain without contrast HISTORY: Coffee-ground emesis. Altered mental status. COMPARISON: 01/28/2020 TECHNIQUE: Multiple contiguous axial images were obtained and a CT of the brain without contrast. FINDINGS: There are scattered hypodensities in the subcortical and periventricular white matter consi stent with small vessel ischemic disease. There is no evidence of hydrocephalus, intracranial hemorrhage, or extra-axial fluid collection. The calvarium and overlying soft tissues are unremarkable. The visualized paranasal sinuses and masto id air cells are well aerated. IMPRESSION: No evidence of acute intracranial abnormality
[2020-06-03] MEDS ORDERED: Sodium Chloride 0.9% 1,000 ML ONE (15:08)
[2020-06-03] MEDS ORDERED: Pantoprazole 40 MG VIAL ONE (15:09)
[2020-06-03] MEDS ORDERED: Sodium Chloride 0.9% 100 ML ONE ×2 (15:09)
[2020-06-03] MEDS ORDERED: cefTRIAXone\\ROCEPHIN 1 GM VIAL ONE (15:09)
== END 2020-06-03 17:18 | disposition short-term general hospital (02) ==
LOC: NAV ERS 12:42
DX: K92.2 Gastrointestinal hemorrhage, unspecified (principal); E86.0 Dehydration; D64.9 Anemia, unspecified; R19.7 Diarrhea, unspecified; I10 Essential (primary) hypertension; E11.9 Type 2 diabetes mellitus without complications; Z79.899 Other long term (current) drug therapy; Z79.84 Long term (current) use of oral hypoglycemic drugs; Z79.82 Long term (current) use of aspirin
CPT/HCPCS: 51701; 70450; 71045; 80053; 81003; 81015; 83605; 84484; 85025; 87040; 87077; 87086; 87186; 93005; 96361; 96365; 96375; C9113; J0696; J3490; J7050

== ENCOUNTER 2020-09-07 12:51 | Inpatient (IN) | payer MEDICARE, MEDICAID ==
[2020-09-07 14:19] LABS: #Basophils 0.1 thou/uL (0.0-0.2); #Eosinphils 0.3 thou/uL (0.0-0.7); #Lymphocytes 1.9 thou/uL (1.20-3.40); #Monocytes 0.7 thou/uL (0.11-0.59); #Neutrophils 7.9 thou/uL (1.40-6.50); %Basophils 0.7 % (0.0-1.0); %Eosinophils 2.7 % (0.0-10.0); %Lymphocytes 17.5 % (21.0-51.0); %Neutrophils 73.1 % (42.0-75.0); Hemoglobin 8.8 g/dL (12.0-16.0); Mean Corpuscular HGB CONC 31.9 g/dL (32.0-36.0); Mean Corpuscular Hemoglobin 28.1 pg (27.0-31.0); Mean Platelet Volume 6.4 fL (7.4-10.4); Platelet Count 338 thou/uL (130-400); RBC Distribution Width 15.4 % (11.5-14.5); Red Blood Cell (RBC) Count 3.13 mill/uL (4.20-5.40); White Blood Cell (WBC) Count 10.8 thou/uL (4.8-10.8)
[2020-09-07 14:41] LABS: ALT (SGPT) 9 U/L (8-55); AST (SGOT) 17 U/L (5-34); Albumin 3.4 g/dL (3.4-4.8); Alkaline Phosphatase 87 U/L (40-110); Anion Gap 18 mmol/L (10-20); BUN (Urea Nitrogen) 36 mg/dL (9.8-20.1); Bilirubin, Total 0.2 mg/dL (0.2-1.2); Calc. Creatinine Clearance 0 mL/min (70-130); Calcium 9.8 mg/dL (7.8-10.44); Carbon Dioxide 16 mmol/L (23-31); Chloride 106 mmol/L (98-107); Glucose 137 mg/dL (83-110); Potassium 3.6 mmol/L (3.5-5.1); Protein, Total 7.4 g/dL (6.0-8.3); Sodium 136 mmol/L (136-145)
[2020-09-07] MEDS ORDERED: Sodium Chloride 0.9% 1,000 ML ONE (16:08)
[2020-09-07] MEDS ORDERED: Cephalexin 250 MG CAP ONE (16:09)
[2020-09-07] MEDS ORDERED: Acetaminophen 325 MG TAB PO PRN (18:30)
[2020-09-07] MEDS ORDERED: Ondansetron PF 4 MG/2 ML Vial IVP PRN (18:30)
[2020-09-07] MEDS ORDERED: Ondansetron ODT 4 MG TAB SL PRN (18:30)
[2020-09-07] MEDS: Sodium Chloride 0.9% 1,000 ML IV SCH ×2 (19:04→20:45)
[2020-09-07] MEDS ORDERED: Ondansetron ODT 4 MG TAB PO PRN (20:27)
[2020-09-07] MEDS ORDERED: Cephalexin 500 MG CAP PO SCH (21:00)
[2020-09-08 01:37] LABS: SARS-CoV-2 MS2 Positive; SARS-CoV-2 N Gene Negative; SARS-CoV-2 S Gene Negative; SARS-CoV-2 by NAA Not Detected (NotDetected); SARS-CoV-2 orf1ab Negative
[2020-09-08] MEDS: Sodium Chloride 0.9% 1,000 ML IV SCH ×3 (04:55→17:36)
[2020-09-08 07:37] LABS: #Basophils 0.1 thou/uL (0.0-0.2); #Eosinphils 0.2 thou/uL (0.0-0.7); #Monocytes 0.7 thou/uL (0.11-0.59); #Neutrophils 6.6 thou/uL (1.40-6.50); %Basophils 0.8 % (0.0-1.0); %Eosinophils 2.3 % (0.0-10.0); %Lymphocytes 20.3 % (21.0-51.0); %Monocytes 7.7 % (0.0-10.0); %Neutrophils 68.9 % (42.0-75.0); Hemoglobin 8.2 g/dL (12.0-16.0); Mean Corpuscular HGB CONC 32.2 g/dL (32.0-36.0); Mean Corpuscular Hemoglobin 27.9 pg (27.0-31.0); Mean Corpuscular Volume 86.6 fL (78.0-98.0); Mean Platelet Volume 6.7 fL (7.4-10.4); Platelet Count 315 thou/uL (130-400); RBC Distribution Width 14.6 % (11.5-14.5); Red Blood Cell (RBC) Count 2.93 mill/uL (4.20-5.40); White Blood Cell (WBC) Count 9.6 thou/uL (4.8-10.8)
[2020-09-08 07:41] LABS: ALT (SGPT) 7 U/L (8-55); AST (SGOT) 12 U/L (5-34); Alkaline Phosphatase 68 U/L (40-110); Anion Gap 15 mmol/L (10-20); BUN (Urea Nitrogen) 32 mg/dL (9.8-20.1); Bilirubin, Total 0.2 mg/dL (0.2-1.2); Calc. Creatinine Clearance 0 mL/min (70-130); Calcium 9.1 mg/dL (7.8-10.44); Carbon Dioxide 18 mmol/L (23-31); Chloride 109 mmol/L (98-107); Globulin 3.6 g/dL (2.4-3.5); Glucose 123 mg/dL (83-110); Potassium 3.5 mmol/L (3.5-5.1); Protein, Total 6.6 g/dL (6.0-8.3); Sodium 138 mmol/L (136-145)
[2020-09-08] MEDS ORDERED: FLU VACC QS2020-21(65YR UP)/PF 240 MCG/0.7 ML SYRINGE IM ONE (09:00)
[2020-09-08] MEDS ORDERED: Acetaminophen 325 MG TAB PO PRN (09:24)
[2020-09-08] MEDS ORDERED: Amlodipine 5 MG TAB PO SCH (09:30)
[2020-09-08] MEDS ORDERED: Aspirin 325 MG TAB PO SCH (09:30)
[2020-09-08] MEDS ORDERED: Cephalexin 500 MG CAP PO SCH (09:30)
[2020-09-08] MEDS ORDERED: glyBURIDE 5 MG TAB PO SCH ×2 (09:30→17:00)
[2020-09-08] MEDS ORDERED: metFORMIN 500 MG TAB PO SCH ×2 (09:30→17:00)
[2020-09-08] MEDS ORDERED: Lisinopril 20 MG TAB PO SCH (09:30)
[2020-09-08 11:00] VITALS: BMI 24.7
[2020-09-08] MEDS: Cephalexin 500 MG CAP PO SCH ×3 (13:36→22:02)
[2020-09-08] MEDS: Acetaminophen 325 MG TAB PO PRN (14:42)
[2020-09-08] MEDS ORDERED: Sodium Chloride 0.9% 20 ML ONE (16:41)
[2020-09-08] MEDS ORDERED: Dextrose 5 % And 0.9 % NaCl 500 ML IV SCH (22:30)
[2020-09-08] MEDS ORDERED: Dextrose 50% Abboject 50 ML SYRINGE IVP PRN (22:30)
[2020-09-08] MEDS ORDERED: Dextrose 5% in Water 1,000 ML IV PRN (22:30)
[2020-09-08] MEDS ORDERED: HumaLOG 300 UNITS/3 ML VIAL SC PRN (22:30)
[2020-09-09] MEDS ORDERED: Sodium Chloride 0.9% 1,000 ML IV SCH (03:30)
[2020-09-09] MEDS: Dextrose 5 % And 0.9 % NaCl 1,000 ML IV SCH ×2 (04:55→16:56)
[2020-09-09] MEDS ORDERED: HumaLOG 300 UNITS/3 ML VIAL SC PRN (08:05)
[2020-09-09] MEDS: Aspirin 325 MG TAB PO SCH (08:39)
[2020-09-09] MEDS: Lisinopril 20 MG TAB PO SCH (08:40)
[2020-09-09] MEDS: Cephalexin 500 MG CAP PO SCH ×2 (08:41→12:17)
[2020-09-09] MEDS: Amlodipine 5 MG TAB PO SCH (08:42)
[2020-09-09] MEDS: HEMOCYTE PO SCH (08:44)
[2020-09-09] MEDS ORDERED: HEMOCYTE PO SCH (09:00)
--- NOTE | 2020-09-09 11:11 | HP ---
HISTORY OF PRESENT ILLNESS: The patient is an unfortunate 75-year-old female, well known to myself with a long history of osteoarthritis of her back, type 2 diabetes, and hypertension, who for the last several years has had poor oral intake, gradual decrease in her weight with significant weight loss of greater than 30 pounds. Despite aggressive evaluation with CT scan of her chest, pelvic and multiple chest x-rays, CT of the brain, multiple chemistry patterns, protein electrophoresis, there has been no significant reason for her poor oral intake and her weight loss. She has presented to the emergency room at this time with an area of pain in her right arm and wrist with some lesions appear to be with cellulitis. She apparently had been exposed to COVID, but has no symptoms of cough, shortness of breath, fever, chills, or diarrhea. In the emergency room, she was found to be slightly more dehydrated with increase in her creatinine to 1.22 and GFR of 52 as compared to her previous GFR of 86 several months ago. She also was found to be chronically anemic 8.2 hemoglobin, where she varies from 8 to 9 over the last several years. She has had GI consultation earlier in the year in June for similar complaints of coffee-grounds emesis and had colonoscopy revealed esophageal stricture, normocytic anemia of chronic disease with mild esophagitis and colonoscopy showing no evidence of malignancy. Apparently after dilation of her stricture, she was doing better. She was evaluated by Speech and felt to have dementia, which may have been causing her problems with poor oral intake. Family was offered halfway or rehab, they refused and went home with home health, but they have discontinued home health now and is only getting physical therapy who had been recommending her to come back to the hospital. PAST MEDICAL HISTORY: Otherwise remarkable only for significant degenerative disk disease and joint disease of her back; chronic pain, which has improved; hypertension, stable; chronic kidney disease, stage 3 at times, but usually stage 2; anemia of chronic disease as mentioned above; and type 2 diabetes, treated with glyburide and metformin; hypertension, treated with hydrochlorothiazide, amlodipine, and lisinopril. PAST SURGICAL HISTORY: Positive for hysterectomy, left knee surgery, laminectomy. FAMILY MEDICAL HISTORY: Positive for type 2 diabetes in her mother. SOCIAL HISTORY: She lives with her daughter. Nonsmoker, nondrinker. REVIEW OF SYSTEMS: HEENT: She denies headaches, dizziness, change in vision or hearing, hoarseness or dysphagia. PULMONARY: She denies cough, sputum production, pneumonia, asthma, or tuberculosis. CARDIOVASCULAR: Denies chest pain, orthopnea, paroxysmal nocturnal dyspnea or edema. GASTROINTESTINAL: She has poor oral intake, but no nausea or vomiting. No abdominal pain. She does have occasional constipation. GENITOURINARY: Denies dysuria, hematuria, nocturia. MUSCULOSKELETAL: She does complain of pain in her wrist and back and does have some tenderness and abrasions of right arm. NEUROLOGIC: She complains of diffuse generalized weakness, but no focal findings. PHYSICAL EXAMINATION: VITAL SIGNS: Showed to have temperature of 98.1, pulse 79, respirations 18, O2 sats 99% on room air, blood pressure 107/53. HEENT: Pupils are equal, round, and reactive to light and accommodation. Sclerae pale. Conjunctivae pale. Oral mucous membranes well hydrated. NECK: Supple. No nodes or masses. JVP is not elevated. LUNGS: Clear. CARDIAC: Examination showed regular rhythm. No gallops or murmurs. ABDOMEN: Soft and nontender with no masses or organomegaly. EXTREMITIES: Show erythema, tenderness and abrasions of her right arm, but significant tenderness on the right wrist, and tenderness to palpation of her back. NEUROLOGIC: Cranial nerves 2 through 12 are intact. Deep tendon reflex 2+ and equal. Absent Babinski's. LABORATORY DATA: Shows sodium 138, potassium 3.5, chloride 109, bicarb 18, BUN 50, BUN 32 after 1 L of saline in the emergency room creatinine is 1.01. GFR 64, glucose 123, calcium 9.1, total bilirubin 0.2. AST 12, ALT 7, alkaline phosphatase 68, BNP 86, protein 6.6, albumin 3.0, and globulin 3.6. COVID is negative in the emergency room. ASSESSMENT AND PLAN: A 75-year-old black female with history of pain in her wrist previously due to osteoarthritis, who developed some cellulitis in her right arm, treated with Keflex, but mainly is admitted because of severe weakness and inability to maintain ADLs and increase dehydration. She has been given IV fluids, but is still not eating well and having her Accu-Cheks checked and may need to have her medication decreased because she is having recurring hypoglycemia. Extensive workup has been done in the past including colonoscopy, gastroscopy, CT scan of the abdomen and pelvis and chemistry evaluation with only finding of mild esophagitis, esophageal stricture and with finding by speech of significant dementia and poor oral intake, possibly causing her anemia of chronic disease and current dehydration. She has been on metformin and glimepiride. She will be admitted to the hospital. These will be discontinued. She is started on a sliding scale. We will have dietary consult, started on Glucerna supplements and will be monitored closely for improvement in her strength and conditioning and start on PT and OT, but we will also have conversation with the family about management with palliative care or residential placement. Job ID: [id number]
--- NOTE | 2020-09-09 11:54 | PRG ---
DATE OF SERVICE: 09/09/2020 SUBJECTIVE: The patient lying in bed, did not eat much breakfast, feels weak, not complaining of any nausea, vomiting, abdominal pain, only having poor appetite. shows Accu-Cheks decreased greatly last night to 60 despite several doses of D50 and discontinuation of glimepiride and metformin and reinstitution of D5 daily. OBJECTIVE: VITAL SIGNS: This morning shows temperature is 97, pulse 102, respirations 20, O2 saturations 100% on room air, blood pressure 127/60. ABDOMEN: Soft and nontender. LUNGS: Clear. CARDIAC: Regular rhythm LABORATORY DATA: Laboratory show the Accu-Cheks are still low this morning at 53. ASSESSMENT: 1. Persistent hypoglycemia secondary to poor oral intake and persistent glimepiride and metformin. 2. Poor oral intake secondary to failure to thrive and progressive dementia. 3. Severe deconditioning with inability to work with therapy. PLAN: 1. Continue on D5 normal, Accu-Cheks q.a.c. mild sliding scale. 2. Discussed senior living placement and palliative care with family. Job ID: [id number]
[2020-09-09] MEDS: Dextrose 50% Abboject 50 ML SYRINGE SLOW IVP PRN ×2 (12:17→16:56)
[2020-09-10] MEDS: Cephalexin 500 MG CAP PO SCH ×6 (05:49→20:28)
[2020-09-10] MEDS: Dextrose 5 % And 0.9 % NaCl 1,000 ML IV SCH ×2 (05:50→10:24)
[2020-09-10] MEDS: Lisinopril 20 MG TAB PO SCH (09:29)
[2020-09-10] MEDS: Amlodipine 5 MG TAB PO SCH (09:32)
[2020-09-10] MEDS: Aspirin 325 MG TAB PO SCH (09:33)
[2020-09-10] MEDS: HEMOCYTE PO SCH (09:34)
[2020-09-10 11:40] LABS: Anion Gap 13 mmol/L (10-20); BUN (Urea Nitrogen) 29 mg/dL (9.8-20.1); Calc. Creatinine Clearance 60 mL/min (70-130); Calcium 8.6 mg/dL (7.8-10.44); Carbon Dioxide 18 mmol/L (23-31); Chloride 107 mmol/L (98-107); Potassium 4.2 mmol/L (3.5-5.1); Sodium 134 mmol/L (136-145)
[2020-09-10 11:47] LABS: Glucose 56 mg/dL (83-110)
[2020-09-10] MEDS: Dextrose 50% Abboject 50 ML SYRINGE SLOW IVP PRN (12:44)
[2020-09-10] MEDS: Acetaminophen 325 MG TAB PO PRN (17:29)
[2020-09-11] MEDS: Dextrose 5 % And 0.9 % NaCl 1,000 ML IV SCH ×2 (00:04→06:08)
[2020-09-11] MEDS ORDERED: Dextrose 10% in Water 1,000 ML IV SCH (07:30)
[2020-09-11] MEDS: Lisinopril 20 MG TAB PO SCH (09:07)
[2020-09-11] MEDS: Aspirin 325 MG TAB PO SCH (09:07)
[2020-09-11] MEDS: Cephalexin 500 MG CAP PO SCH ×4 (09:08→20:53)
[2020-09-11] MEDS: Amlodipine 5 MG TAB PO SCH (09:08)
[2020-09-11] MEDS: HEMOCYTE PO SCH (09:09)
[2020-09-12] MEDS: Lisinopril 20 MG TAB PO SCH (08:31)
[2020-09-12] MEDS: Aspirin 325 MG TAB PO SCH (08:32)
[2020-09-12] MEDS: Cephalexin 500 MG CAP PO SCH ×4 (08:32→20:44)
[2020-09-12] MEDS: HEMOCYTE PO SCH (08:33)
[2020-09-12] MEDS ORDERED: Iopamidol 370 76% 100 ML VIAL ONE (09:00)
[2020-09-12] MEDS: Amlodipine 5 MG TAB PO SCH (09:19)
--- NOTE | 2020-09-12 23:30 | CT ---
CT abdomen and pelvis: September 12, 2020 COMPARISON: 06/03/2020 HISTORY: Hypoglycemia, weight loss TECHNIQUE: Axial CT imaging at 5 mm intervals from lung bases through pubic symphysis with IV and ora l contrast. Coronal and sagittal reformatted imaging obtained. FINDINGS: The visualized lung bases are unremarkable. The superior aspect of the liver dome is not fu lly imaged on this examination. Imaged portions of the hepatic parenchyma demonstrate no acute findings. The spleen appears unremarka ble. There is layering hyperdense material within the gallbladder suggesting stones and/or sludge. There is minimal intrahepatic biliary ductal prominence. The pancreas, adrenal glands, and kidneys de monstrate no acute findings. The rectum is expanded and filled with stool. There is mild stranding of the adjacent perirectal fat with small volume fluid within the presacral space. Findings are suspicious for fecal impaction and possible associated stercoral colitis. There is diverticulosis of the descending colon and sigmoid co greer with no evidence for diverticulitis. The appendix appears unremarkable. There is extensive multifocal atherosclerotic calcification of the abdominal aorta and its branches. No abdominal or pelvic lymphadenopathy is seen. Review of the osseous structures demonstrates anterolisthesis at L4-5 measuring 1.5 cm. Prominent mul tilevel lower lumbar spine facet hypertrophy. No acute osseous abnormality is seen. Multilevel lower lumbar spine bilateral laminectomy. IMPRESSION: The rectum is expanded and filled with stool suggesting fecal impaction. Pericolonic fat stranding and fluid within the presacral space may signify associated stercoral colitis. Additional findings as detailed above.
[2020-09-13] MEDS: Cephalexin 500 MG CAP PO SCH ×2 (09:18→12:25)
[2020-09-13] MEDS: Aspirin 325 MG TAB PO SCH (09:18)
[2020-09-13] MEDS: Lisinopril 20 MG TAB PO SCH (09:19)
[2020-09-13] MEDS: Amlodipine 5 MG TAB PO SCH (09:19)
[2020-09-13] MEDS: HEMOCYTE PO SCH (09:20)
[2020-09-13] MEDS ORDERED: Ondansetron ODT 4 MG TAB SL PRN (12:15)
[2020-09-13 13:09] VITALS: BP 136/61; TEMP 96.3
== END 2020-09-13 13:26 | disposition home or self-care (01) | DRG 884 ==
LOC: NAV ERS 12:51 → NAV ACUTE 17:36 → OBSVTOIN 09-09 14:00
PROVIDERS: ADMIT Internal Medicine; ATTEND Internal Medicine
DX: F03.90 Unspecified dementia, unspecified severity, without behavioral disturbance, psychotic disturbance, mood disturbance, and anxiety (principal); R62.7 Adult failure to thrive; I12.9 Hypertensive chronic kidney disease with stage 1 through stage 4 chronic kidney disease, or unspecified chronic kidney disease; E11.22 Type 2 diabetes mellitus with diabetic chronic kidney disease; N18.30 Chronic kidney disease, stage 3 unspecified; E86.0 Dehydration; E11.649 Type 2 diabetes mellitus with hypoglycemia without coma; Z68.24 Body mass index [BMI] 24.0-24.9, adult; Z90.710 Acquired absence of both cervix and uterus; Z83.3 Family history of diabetes mellitus
CPT/HCPCS: 36416; 74178; 80048; 80053; 83880; 85025; 87635; 96361; 96365; 96366; 96375; 99284; 36415-59; G0378; J1610; J7042; J7050; Q9967; U0003